=== PATIENT | female | born 1940 | race Caucasian/White ===

== ENCOUNTER 2016-08-05 18:53 | Inpatient (IN) | payer OTHER, MEDICARE ==
[~2016-08-05] VITALS: Ht 147.3 cm; Wt 89.5 kg
[2016-08-05 20:01] LABS: HEMATOCRIT 43.3 % (36.0-46.0); MCH 30.1 PG (29.0-34.0); MCHC 32.8 G/DL (30.0-36.0); MCV 91.7 FL (83-99); MEAN PLAT.VOLUME 9.6 uM^3 (9.5-12.4); PLATELET COUNT 195 K/uL (156-360); RBC DIS.WIDTH-CV 13.7 % (11.8-14.6); RBC DIS.WIDTH-SD 46.4 % (39-53); RED BLOOD COUNT 4.72 M/uL (3.80-5.20); WHITE BLOOD COUNT 11.8 K/uL (4.1-10.2)
[2016-08-05 20:13] LABS: CHLORIDE 103 mEq/L (99-109); POTASSIUM 4.2 mEq/L (3.7-5.4); SODIUM 140 mEq/L (136-147)
[2016-08-05 20:15] LABS: GLUCOSE 139 mg/dL (70-99)
[2016-08-05 20:16] LABS: ANION GAP 12 MEQ/L (2-14)
[2016-08-05 20:17] LABS: TOTAL BILIRUBIN 0.2 mg/dL (0.0-1.0)
[2016-08-05 20:18] LABS: ALKALINE PHOSPHATASE 83 IU/L (3-129)
[2016-08-05 20:19] LABS: GFR ESTIMATE (CALCULATED) 36 mL/min/
[2016-08-05 20:20] LABS: UREA NITROGEN (BUN) 37 mg/dL (9-23)
[2016-08-05 23:15] LABS: D-DIMER ELISA 0.68 mg/L FEU (< 0.57)
[2016-08-05] MEDS ORDERED: LANTUS 3 M100 UNITS1 SC (23:26)
[2016-08-05] MEDS ORDERED: BENICAR HCT 401 EACH PO (23:26)
[2016-08-05] MEDS ORDERED: HUMALOG100 UNIT/2 SC ×2 (23:27→23:28)
[2016-08-05] MEDS ORDERED: ALPRAZOLAM ER2 MG PO (23:27)
[2016-08-05] MEDS ORDERED: MIRTAZAPINE30 MG PO (23:28)
[2016-08-05] MEDS ORDERED: RISPERIDONE0.25 MG PO (23:28)
[2016-08-05] MEDS ORDERED: TRAZODONE HCL50 MG PO (23:29)
[2016-08-05] MEDS ORDERED: SIMVASTATIN40 MG PO (23:29)
[2016-08-05] MEDS ORDERED: IRON325 M1 PO (23:29)
[2016-08-05] MEDS ORDERED: APRESOLINE50 MG PO (23:29)
[2016-08-05] MEDS ORDERED: VENLAFAXINE HCL75 M3 PO (23:30)
[2016-08-06] VITALS (8 sets, daily range): BP systolic 138–169; BP diastolic 72–103
[2016-08-06 01:39] LABS: POINT-OF-CARE METER ID UU13113747
[2016-08-06 07:23] LABS: POINT-OF-CARE METER ID UU14149397
[2016-08-06 15:56] LABS: POINT-OF-CARE METER ID UU13113675; POINT-OF-CARE USER ID ADMSLT55
[2016-08-06 21:20] LABS: POINT-OF-CARE METER ID UU14149397
[2016-08-07] VITALS (8 sets, daily range): BP systolic 114–150; BP diastolic 58–85
[2016-08-07 16:38] LABS: POINT-OF-CARE METER ID UU14149397
[2016-08-07 22:08] LABS: POINT-OF-CARE METER ID UU14149397
[2016-08-08 04:00] VITALS: BP 136/65
[2016-08-08 07:34] VITALS: BP 124/68
[2016-08-08 11:23] LABS: POINT-OF-CARE METER ID UU14149397
[2016-08-08 11:41] VITALS: BP 149/70
[2016-08-08 15:02] VITALS: BP 137/69
[2016-08-08 16:21] LABS: POINT-OF-CARE METER ID UU14188577
[2016-08-08 19:36] VITALS: BP 138/69
[2016-08-08 21:38] LABS: POINT-OF-CARE METER ID UU14149397
[2016-08-08 23:42] VITALS: BP 131/61
[2016-08-09 03:38] VITALS: BP 145/76
[2016-08-09 07:16] VITALS: BP 134/64
[2016-08-09 11:20] LABS: POINT-OF-CARE METER ID UU14188577
[2016-08-09 11:53] VITALS: BP 110/51
[2016-08-09 15:12] VITALS: BP 136/78
[2016-08-09 16:30] LABS: POINT-OF-CARE METER ID UU14188577
[2016-08-09 19:48] VITALS: BP 119/85
[2016-08-09 21:47] LABS: POINT-OF-CARE METER ID UU14149397
[2016-08-10 00:22] VITALS: BP 127/58
[2016-08-10 03:48] VITALS: BP 124/60
[2016-08-10 06:23] LABS: POINT-OF-CARE METER ID UU14149397
[2016-08-10 07:58] VITALS: BP 125/66
[2016-08-10 12:23] VITALS: BP 130/79
[2016-08-10 12:29] LABS: POINT-OF-CARE METER ID UU14149397
[2016-08-10 15:30] VITALS: BP 133/67
[2016-08-10 19:41] VITALS: BP 136/70
[2016-08-10 21:30] LABS: POINT-OF-CARE METER ID UU14188577
[2016-08-11] VITALS (7 sets, daily range): BP systolic 98–148; BP diastolic 47–89
[2016-08-11 12:03] LABS: POINT-OF-CARE METER ID UU14188577
[2016-08-11] MEDS ORDERED: LEVEMIR100 UNIT/2 SC (16:05)
[2016-08-11] MEDS ORDERED: NOVOLOG PE100 UNITS/ SC (16:05)
[2016-08-11] MEDS ORDERED: OXYCODONE HCL10 MG PO (16:07)
[2016-08-11 18:34] LABS: POINT-OF-CARE METER ID UU14188577
[2016-08-11 21:03] LABS: POINT-OF-CARE METER ID UU14188577
[2016-08-12 04:36] VITALS: BP 163/72
[2016-08-12 07:39] VITALS: BP 156/70
== END 2016-08-12 11:08 | DRG 563 ==
LOC: EME 18:53 → 3EAST 08-06 00:28 → EDOF 08-06 00:28 → 3EAST 08-06 02:22
PROVIDERS: Internal Medicine; Physician Assistant
PROC: 0RSJXZZ Reposition Right Shoulder Joint, External Approach (ICD-10-PCS; principal; 2016-08-06)
DX: S43.014A Anterior dislocation of right humerus, initial encounter (principal); S42.294A Other nondisplaced fracture of upper end of right humerus, initial encounter for closed fracture; S43.034A Inferior dislocation of right humerus, initial encounter; Z68.41 Body mass index [BMI] 40.0-44.9, adult; J44.1 Chronic obstructive pulmonary disease with (acute) exacerbation; F33.9 Major depressive disorder, recurrent, unspecified; F17.210 Nicotine dependence, cigarettes, uncomplicated; E78.5 Hyperlipidemia, unspecified; E78.00 Pure hypercholesterolemia, unspecified; F41.9 Anxiety disorder, unspecified; E11.22 Type 2 diabetes mellitus with diabetic chronic kidney disease; M19.90 Unspecified osteoarthritis, unspecified site; N18.9 Chronic kidney disease, unspecified; I12.9 Hypertensive chronic kidney disease with stage 1 through stage 4 chronic kidney disease, or unspecified chronic kidney disease; R09.02 Hypoxemia; S80.211A Abrasion, right knee, initial encounter; W01.0XXA Fall on same level from slipping, tripping and stumbling without subsequent striking against object, initial encounter; E66.01 Morbid (severe) obesity due to excess calories; I51.7 Cardiomegaly; M21.331 Wrist drop, right wrist; S64.490A Injury of digital nerve of right index finger, initial encounter; S64.496A Injury of digital nerve of right little finger, initial encounter; S64.492A Injury of digital nerve of right middle finger, initial encounter; S64.494A Injury of digital nerve of right ring finger, initial encounter; S64.31XA Injury of digital nerve of right thumb, initial encounter; Z79.4 Long term (current) use of insulin; Z80.7 Family history of other malignant neoplasms of lymphoid, hematopoietic and related tissues
CPT/HCPCS: 71010; 73020; 73030; 73110; 73200; 73564; 76000; 80048; 80053; 82948; 85027; 85379; 93005; 94640; 94640 76; 94799; 97530 GP; 99202; 99281; 99285; J0330; J1100; J1644; J1815; J2270; J2405; J3010; J7030

== ENCOUNTER 2016-08-15 16:59 | Inpatient (IN) | payer OTHER, MEDICARE ==
[~2016-08-15] VITALS: Ht 147.3 cm; Wt 78.0 kg
[~2016-08-15 16:59] MED LIST: ALPRAZOLAM ER2 MG PO; APRESOLINE50 MG PO; BENICAR HCT 401 EACH PO; HUMALOG100 UNIT/2 SC; IRON325 M1 PO; LANTUS 3 M100 UNITS1 SC; LEVEMIR100 UNIT/2 SC; MIRTAZAPINE30 MG PO; NOVOLOG PE100 UNITS/ SC; OXYCODONE HCL10 MG PO; RISPERIDONE0.25 MG PO; SIMVASTATIN40 MG PO; TRAZODONE HCL50 MG PO; VENLAFAXINE HCL75 M3 PO
[2016-08-15 18:15] LABS: CHLORIDE 94 mEq/L (99-109); POTASSIUM 4.1 mEq/L (3.7-5.4); SODIUM 135 mEq/L (136-147)
[2016-08-15 18:17] LABS: GLUCOSE 254 mg/dL (70-99)
[2016-08-15 18:18] LABS: ANION GAP 15 MEQ/L (2-14)
[2016-08-15 18:21] LABS: GFR ESTIMATE (CALCULATED) 17 mL/min/
[2016-08-15 18:22] LABS: UREA NITROGEN (BUN) 71 mg/dL (9-23)
[2016-08-15 18:36] LABS: HEMATOCRIT 40.2 % (36.0-46.0); MCH 30.1 PG (29.0-34.0); MCHC 32.8 G/DL (30.0-36.0); MCV 91.8 FL (83-99); MEAN PLAT.VOLUME 9.8 uM^3 (9.5-12.4); PLATELET COUNT 305 K/uL (156-360); RBC DIS.WIDTH-CV 13.6 % (11.8-14.6); RBC DIS.WIDTH-SD 45.2 % (39-53); RED BLOOD COUNT 4.38 M/uL (3.80-5.20); WHITE BLOOD COUNT 16.5 K/uL (4.1-10.2)
[2016-08-15 19:40] LABS: D-DIMER ELISA 1.35 mg/L FEU (< 0.57)
[2016-08-15 20:03] LABS: TROP-I INTERPRETATION NEGATIVE; TROPONIN-I < 0.01 ng/mL (0.0-0.30)
[2016-08-15] MEDS ORDERED: ATORVASTATIN CA20 MG PO (20:34)
[2016-08-15] MEDS ORDERED: HYZAAR 100-11 TABLET PO (20:36)
[2016-08-15] MEDS ORDERED: LEVEMIR FL100 UNIT/1 SC (20:39)
[2016-08-15] MEDS ORDERED: FLEET MINERAL133 ML PR (20:40)
[2016-08-15] MEDS ORDERED: DULCOLAX10 MG PR (20:40)
[2016-08-15] MEDS ORDERED: MILK OF MAGN PO (20:41)
[2016-08-15] MEDS ORDERED: ACETAMINOPHEN325 M1 PO (20:42)
[2016-08-15 21:21] VITALS: BP 134/61
[2016-08-16 02:52] VITALS: BP 156/72
[2016-08-16 07:00] VITALS: BP 132/63
[2016-08-16 07:54] LABS: ANION GAP 13 MEQ/L (2-14); CHLORIDE 95 MEQ/L (99-109); GFR ESTIMATE (CALCULATED) 24 mL/min/; GLUCOSE 165 mg/dL (70-99); POTASSIUM 4.4 MEQ/L (3.7-5.4); SAMPLE HEMOLYSIS CHECK 3; SAMPLE ICTERIC CHECK 0; SAMPLE LIPEMIA CHECK 0; SODIUM 135 MEQ/L (136-147); UREA NITROGEN (BUN) 74 mg/dL (9-23)
[2016-08-16 15:12] LABS: COLOR YELLOW ((YELLOW)); GLUCOSE (STRIP) NEGATIVE; KETONES 5; LEUKOCYTES NEGATIVE; NITRITE NEGATIVE; PROTEIN (STRIP) NEGATIVE; SPECIFIC GRAVITY 1.016 (1.000-1.030)
[2016-08-16 15:13] LABS: ADD MIUA? NO; BILIRUBIN NEGATIVE; BLOOD NEGATIVE; UCUL ADDED? NO
[2016-08-16 16:00] VITALS: BP 168/78
[2016-08-16 19:15] VITALS: BP 131/66
[2016-08-16 23:50] VITALS: BP 125/64
[2016-08-17 03:47] VITALS: BP 137/60
[2016-08-17 06:55] VITALS: BP 138/66
[2016-08-17 07:38] LABS: ANION GAP 12 MEQ/L (2-14); CHLORIDE 98 MEQ/L (99-109); GFR ESTIMATE (CALCULATED) 36 mL/min/; GLUCOSE 162 mg/dL (70-99); HEMATOCRIT 38.2 % (36.0-46.0); MCH 30.3 PG (29.0-34.0); MCHC 32.7 G/DL (30.0-36.0); MCV 92.7 FL (83-99); MEAN PLAT.VOLUME 10.1 uM^3 (9.5-12.4); PLATELET COUNT 244 K/uL (156-360); RBC DIS.WIDTH-CV 13.6 % (11.8-14.6); RED BLOOD COUNT 4.12 M/uL (3.80-5.20); SAMPLE HEMOLYSIS CHECK 0; SAMPLE ICTERIC CHECK 0; SAMPLE LIPEMIA CHECK 0; SODIUM 136 MEQ/L (136-147); UREA NITROGEN (BUN) 54 mg/dL (9-23); WHITE BLOOD COUNT 8.9 K/uL (4.1-10.2)
[2016-08-17 12:16] VITALS: BP 116/59
[2016-08-17 15:26] VITALS: BP 144/66
[2016-08-17 15:52] LABS: POINT-OF-CARE METER ID UU14162508
[2016-08-17 21:32] LABS: POINT-OF-CARE METER ID UU14162508
[2016-08-17 23:26] VITALS: BP 151/70
[2016-08-18 06:45] VITALS: BP 172/76
[2016-08-18] MEDS ORDERED: OXYCODONE HCL5 MG PO (07:25)
[2016-08-18 07:43] LABS: ANION GAP 9 MEQ/L (2-14); CHLORIDE 100 MEQ/L (99-109); GFR ESTIMATE (CALCULATED) 36 mL/min/; GLUCOSE 159 mg/dL (70-99); POTASSIUM 4.1 MEQ/L (3.7-5.4); SAMPLE HEMOLYSIS CHECK 0; SAMPLE ICTERIC CHECK 0; SAMPLE LIPEMIA CHECK 0; SODIUM 138 MEQ/L (136-147); UREA NITROGEN (BUN) 44 mg/dL (9-23)
[2016-08-18 11:40] LABS: POINT-OF-CARE USER ID PUTDRM
== END 2016-08-18 15:20 | DRG 684 ==
LOC: EME 16:59 → EDOF 19:09 → 2EAST 19:09
PROVIDERS: Emergency Medicine; Family Medicine; Internal Medicine
DX: N17.9 Acute kidney failure, unspecified (principal); I12.9 Hypertensive chronic kidney disease with stage 1 through stage 4 chronic kidney disease, or unspecified chronic kidney disease; E11.22 Type 2 diabetes mellitus with diabetic chronic kidney disease; N18.3 Chronic kidney disease, stage 3 (moderate); R41.82 Altered mental status, unspecified; R09.02 Hypoxemia; D72.829 Elevated white blood cell count, unspecified; J44.9 Chronic obstructive pulmonary disease, unspecified; J45.909 Unspecified asthma, uncomplicated; E78.5 Hyperlipidemia, unspecified; E86.0 Dehydration; F32.9 Major depressive disorder, single episode, unspecified; F41.9 Anxiety disorder, unspecified; G47.33 Obstructive sleep apnea (adult) (pediatric); D64.9 Anemia, unspecified; Z60.2 Problems related to living alone; E66.9 Obesity, unspecified; Z68.35 Body mass index [BMI] 35.0-35.9, adult; S43.004D Unspecified dislocation of right shoulder joint, subsequent encounter; S54.01XD Injury of ulnar nerve at forearm level, right arm, subsequent encounter; W19.XXXD Unspecified fall, subsequent encounter; Y92.019 Unspecified place in single-family (private) house as the place of occurrence of the external cause; Z91.81 History of falling; Z79.4 Long term (current) use of insulin; Z87.891 Personal history of nicotine dependence; Z80.7 Family history of other malignant neoplasms of lymphoid, hematopoietic and related tissues
CPT/HCPCS: 70450; 71020; 78582; 80048; 81003; 82948; 83880; 84484; 85027; 85379; 94640; 94640 76; 94799; 99202; 99281; 99285; A9540; A9567; J1815

== ENCOUNTER → 2016-11-24 | Outpatient (CLI) | payer OTHER, MEDICARE ==
[~2016-11-24] MED LIST changes: +ACETAMINOPHEN325 M1 PO; +ATORVASTATIN CA20 MG PO; +DULCOLAX10 MG PR; +FLEET MINERAL133 ML PR; +HYZAAR 100-11 TABLET PO; +LEVEMIR FL100 UNIT/1 SC; +MILK OF MAGN PO; +OXYCODONE HCL5 MG PO
== END ==
LOC: RAD 13:30 → MRI 13:30
DX: R60.9 Edema, unspecified (principal); M75.101 Unspecified rotator cuff tear or rupture of right shoulder, not specified as traumatic; M19.011 Primary osteoarthritis, right shoulder; M25.411 Effusion, right shoulder; R53.1 Weakness
CPT/HCPCS: 73221